=== PATIENT | female | born 1975 | race Caucasian/White ===

== ENCOUNTER 2017-06-24 09:06 | Emergency (ER) | payer OTHER ==
[2017-06-24 09:10] VITALS: TEMP 97.8; BMI 29.8
[2017-06-24] MEDS ORDERED: ACETAMINOPHEN 1000 MG/100 ML VIAL (NON FORMULARY) IVPB ONE (09:47)
[2017-06-24] MEDS ORDERED: SODIUM CHLORIDE 1,000 ML IV STA (09:47)
--- NOTE | 2017-06-24 09:48 | PDOC ---
History of Present Illness - General Chief Complaint: Pain, Acute Stated Complaint: ABD PAIN Time Seen by Provider: 06/24/17 09:19 History Source: Patient Exam Limitations: No Limitations - History of Present Illness Initial Comments: 06/24/17 09:52 Pt. is a 41 y/o F PMH fibroid surgery 2 monthso ago, who presents to the ED c/o of abdominal pain since Saturday evening. Pt. states that the pain began in her r lower quadrant/suprapubic area. She states that now her whole stomach hurts. She states that she feels bloated. Last bowel movement was Saturday evening and normal for her. Denies blood in the stool. Denies fevers, chills, n/v/d. She is currently on her menstrual cycle 06/24/17 13:37 Past History - Travel Traveled outside of the country in the last 30 days: No Close contact w/someone who was outside of country & ill: No - Past Medical History Allergies/Adverse Reactions: Allergies Allergy/AdvReac Type Severity Reaction Status Date / Time Penicillins Allergy Verified 06/24/17 09:08 Home Medications: Ambulatory Orders NK [No Known Home Medication] 06/24/17 COPD: No - Surgical History Abdominal Surgery: Yes (fibroids) - Reproductive History Is Patient Now?: No - Suicide/Smoking/Psychosocial Hx Smoking History: Never smoked Have you smoked in the past 12 months: No Information on smoking cessation initiated: No Hx Alcohol Use: No Drug/Substance Use Hx: No Substance Use Type: None Review of Systems - Review of Systems Able to Perform ROS?: Yes Is the patient limited Swedish proficient: No Constitutional: No: Chills, Fever, Malaise, Weakness ABD/GI: Yes: Abdominal Distended, Constipated, Abdominal cramping (RLQ, suprapubic area). No: Diarrhea, Nausea, Rectal Bleeding, Vomiting : Yes: Other (currently on menstural cycle). No: Burning, Dysuria, Discharge , Frequency, Hematuria Musculoskeletal: No: Back Pain, Joint Swelling Integumentary: No: Bruising, Pruritus, Rash All Other Systems: Reviewed and Negative *Physical Exam - Vital Signs Last Vital Signs Temp Pulse Resp BP Pulse Ox 97.8 F 75 18 142/87 100 06/24/17 09:08 06/24/17 09:08 06/24/17 09:08 06/24/17 09:08 06/24/17 09:08 - Physical Exam General Appearance: Yes: Nourished, Appropriately Dressed, Mild Distress ( laying on bed holding abdomen.) Neck: positive: Trachea midline, Supple. negative: Tender, Rigid, Lymphadenopathy (R), Lymphadenopathy (L) Respiratory/Chest: positive: Lungs Clear, Normal Breath Sounds. negative: Respiratory Distress, Accessory Muscle Use, Rhonchi, Stridor, Wheezing Cardiovascular: positive: Regular Rhythm, Regular Rate, S1, S2 (present). negative: Murmur Female Pelvic Exam: positive: normal external exam, CMT (suprapubic region), vaginal bleeding (on menstural cycle). negative: lesions, adnexal tenderness Gastrointestinal/Abdominal: positive: Normal Bowel Sounds, Tender (RLQ, Suprapubic area), Flat, Soft, Other ((+) obturator sign). negative: Guarding, Rebound Musculoskeletal: positive: Normal Inspection. 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 No appendicitis, states see some sigmoid thickening. Awaiting official report. Pelvic exam: internal, os open, bleeding currently. Blood in the vault. Pt. on her menstral cycle. (+) cervical motion tenderness over the suprapubic area. Pt. to go for pelvic US.
[2017-06-24] MEDS ORDERED: ACETAMINOPHEN INJECTION 100 ML IVPB ONE (09:50)
[2017-06-24 10:07] LABS: BASOPHIL 1.1 % (0-2.0); EOSINOPHIL 2.3 % (0-4.5); MCH 22.2 pg (25.7-33.7); MCHC 31.1 g/dl (32.0-36.0); MEAN CELL VOLUME 71.6 fl (80-96); MEAN PLT VOLUME 9.1 fl (7.5-11.1); NEUTROPHILS 64.6 % (42.8-82.8); PLATELET COUNT 223 K/MM3 (134-434); WHITE BLOOD COUNT 8.6 K/mm3 (4.0-10.0)
[2017-06-24 10:16] LABS: URINE APPEARANCE CLOUDY; URINE BILIRUBIN NEGATIVE (NEGATIVE); URINE BLOOD 3+ (NEGATIVE); URINE COLOR AMBER; URINE GLUCOSE (UA) NEGATIVE (NEGATIVE); URINE KETONE NEGATIVE (NEGATIVE); URINE LEUK ESTERASE NEGATIVE (NEGATIVE); URINE NITRITE NEGATIVE (NEGATIVE); URINE PROTEIN 1+ (NEGATIVE); URINE UROBILINOGEN NEGATIVE mg/dL (0.2-1.0)
[2017-06-24 10:35] LABS: ALBUMIN 3.2 g/dl (3.4-5.0); ANION GAP 5 (8-16); BILIRUBIN,TOTAL 0.7 mg/dL (0.2-1.0); CALCIUM 7.9 mg/dL (8.5-10.1); CO2 28 mmol/L (21-32); CREATININE 0.6 mg/dL (0.55-1.02); GLUCOSE,RANDOM 87 mg/dL (74-106); SGOT/AST 10 U/L (15-37); SGPT/ALT 18 U/L (12-78)
[2017-06-24 10:36] LABS: ALK PHOS 73 U/L (45-117)
[2017-06-24 11:09] LABS: GRANULAR CASTS 12 /lpf; URINE MUCUS MANY; URINE RBC 162 /hpf (0-3); URINE WBC 4 /hpf (3-5)
[2017-06-24 15:45] LABS: URINE LEUK ESTERASE NEGATIVE (NEGATIVE)
--- NOTE | 2017-06-24 16:17 | PDOC ---
*Physical Exam - Vital Signs Last Vital Signs Temp Pulse Resp BP Pulse Ox 97.8 F 75 18 142/87 100 06/24/17 09:08 06/24/17 09:08 06/24/17 09:08 06/24/17 09:08 06/24/17 09:08 ED Treatment Course - LABORATORY CBC & Chemistry Diagram: 06/24/17 10:01 06/24/17 10:01 - ADDITIONAL ORDERS Additional order review: Laboratory Results 06/24/17 06/24/17 10:01 09:55 Sodium 140 Potassium 4.3 Chloride 107 Carbon Dioxide 28 Anion Gap 5 L BUN 7 Creatinine 0.6 Creat Clearance w eGFR > 60 Random Glucose 87 Calcium 7.9 L Total Bilirubin 0.7 AST 10 L ALT 18 Alkaline Phosphatase 73 Total Protein 7.0 Albumin 3.2 L Urine Color Tory Urine Appearance Cloudy Urine pH 5.0 Ur Specific [place] 1.026 Urine Protein 1+ H Urine Glucose (UA) Negative Urine Ketones Negative Urine Blood 3+ H Urine Nitrite Negative Urine Bilirubin Negative Urine Urobilinogen Negative Ur Leukocyte Esterase Negative Urine WBC (Auto) 4 Urine RBC (Auto) 162 Ur Epithelial Cells Few Granular Casts 12 Urine Mucus Many Urine HCG, Qual Negative 06/24/17 10:01 RBC 4.86 MCV 71.6 L MCHC 31.1 L RDW 19.0 H MPV 9.1 Neutrophils % 64.6 Lymphocytes % 26.5 Monocytes % 5.5 Eosinophils % 2.3 Basophils % 1.1 - Medications Given in the ED: ED Medications Discontinued Medications Generic Name Dose Route Start Last Admin Trade Name Freq PRN Reason Stop Dose Admin Acetaminophen 1,000 mg 06/24/17 09:47 06/24/17 10:02 Ofirmev Injection - IVPB 06/24/17 09:48 1,000 mg ONCE ONE Administration Sodium Chloride 1,000 mls @ 1,000 mls/hr 06/24/17 09:47 06/24/17 10:01 Normal Saline - IV 06/24/17 10:46 1,000 mls/hr ASDIR STA Administration Medical Decision Making - Medical Decision Making 06/24/17 16:15 CT and US appreaciated. 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 Percocet for pain and Note to be off work until follow up on Saturday *DC/Admit/Observation/Transfer Diagnosis at time of Disposition: Pelvic pain Uterine fibroid Qualifiers: Uterine leiomyoma location: unspecified location Qualified Code(s): D25.9 - Leiomyoma of uterus, unspecified Ovarian cyst Qualifiers: Laterality: unspecified laterality Qualified Code(s): N83.209 - Unspecified ovarian cyst, unspecified side - Discharge Dispostion Disposition: HOME Admit: No - Prescriptions Prescriptions: Oxycodone HCl/Acetaminophen [Percocet 5-325 mg Tablet] 1 - 2 tab PO Q6H #20 tab MDD 8 - Referrals - Patient Instructions Printed Discharge Instructions: DI for Uterine Fibroids, DI for Pelvic Pain Additional Instructions: Debi- Sorry this hurts so badly. Return to us if worse. See your Public Services Librarian in the clinic on SATURDAY. Take your printed lab and imaging results with you. Percocet is for bad pain. Take motrin for pain otherwise. Pedro- Dr. Jay Soriano - Post Discharge Activity
[2017-06-24 16:45] VITALS: BP 136/75; PULSE 71
== END 2017-06-24 16:44 | disposition home or self-care (01) ==
LOC: JER 09:06
PROC: 3E033NZ Introduction of Analgesics, Hypnotics, Sedatives into Peripheral Vein, Percutaneous Approach (ICD-10-PCS; principal; 2017-06-24)
PROC: 3E0337Z Introduction of Electrolytic and Water Balance Substance into Peripheral Vein, Percutaneous Approach (ICD-10-PCS; 2017-06-24)
DX: N83.209 Unspecified ovarian cyst, unspecified side (principal); D25.9 Leiomyoma of uterus, unspecified; R10.2 Pelvic and perineal pain
CPT/HCPCS: 36415; 74177-TC; 76830-TC; 80053; 81003; 81015; 84703; 85025; 87086; 96361; 96374; 99283-25; Q9967

== ENCOUNTER 2017-07-09 17:01 | Emergency (ER) | payer OTHER ==
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
[2017-07-09 17:18] VITALS: BP 160/86; PULSE 65; TEMP 98.3; BMI 29.8
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
== END 2017-07-09 18:21 | disposition left against medical advice (07) ==
LOC: JERFT 17:01
DX: Z01.30 Encounter for examination of blood pressure without abnormal findings (principal); V43.52XA Car driver injured in collision with other type car in traffic accident, initial encounter; Y92.488 Other paved roadways as the place of occurrence of the external cause; Y93.89 Activity, other specified; Y99.8 Other external cause status
CPT/HCPCS: 99281-25

== ENCOUNTER 2020-11-14 17:22 | Emergency (ER) | payer OTHER ==
[2020-11-14 17:44] VITALS: BMI 25.4
[2020-11-14] MEDS ORDERED: LACTATED RINGERS SOLUTION 1000 ML INFUS.BAG IV STA (20:32)
[2020-11-14] MEDS ORDERED: ACETAMINOPHEN 1000 MG/100 ML VIAL (NON FORMULARY) IVPB ONE (20:32)
[2020-11-14] MEDS ORDERED: VANCOMYCIN 1,000 MG in DEXTROSE 5%-WATER - 250 ML IVPB ONE (20:33)
[2020-11-14] MEDS ORDERED: MEROPENEM 1 GM in DEXTROSE 5%-WATER 100 ML IVPB ONE (20:35)
[2020-11-14] MEDS ORDERED: morphine CARPU-JECT 4 MG/1 ML DISP.SYRIN IVPUSH ONE (20:40)
[2020-11-14] MEDS ORDERED: morphine SULFATE 4 MG/ML VIAL ONE (21:55)
[2020-11-14] MEDS ORDERED: ACETAMINOPHEN INJECTION 100 ML IVPB ONE (21:56)
[2020-11-14] MEDS ORDERED: MEROPENEM 1 GM VIAL (RESTRICTED TO ID) IVPB ONE (21:56)
[2020-11-14 22:32] LABS: BASO % 0.5 % (0-2.0); HEMATOCRIT 32.5 % (32.4-45.2); HEMOGLOBIN 10.5 GM/dL (10.7-15.3); LYMPH % 24.5 % (8-40); MCH 27.3 pg (25.7-33.7); MCHC 32.5 g/dl (32.0-36.0); MEAN PLT VOLUME 8.8 fl (7.5-11.1); PLATELET COUNT 235 K/MM3 (134-434); RBC 3.86 M/mm3 (3.60-5.2); RDW 20.2 % (11.6-15.6); WHITE BLOOD COUNT 7.1 K/mm3 (4.0-10.0)
[2020-11-14 22:37] LABS: INR 1.22 (0.83-1.09); PROTHROMBIN TIME (PATIENT) 14.7 SEC (9.7-13.0)
[2020-11-14 22:40] LABS: ACTIVATED PTT 28.6 SECONDS (25.2-36.5)
[2020-11-14 22:43] LABS: ALBUMIN 2.4 g/dl (3.4-5.0); BLOOD UREA NITROGEN 5.7 mg/dL (7-18); CALCIUM 8.1 mg/dL (8.5-10.1); MAGNESIUM 1.7 mg/dL (1.8-2.4)
[2020-11-14 22:44] LABS: URINE APPEARANCE CLEAR; URINE BILIRUBIN NEGATIVE (NEGATIVE); URINE COLOR YELLOW; URINE GLUCOSE (UA) NEGATIVE (NEGATIVE); URINE KETONE NEGATIVE (NEGATIVE); URINE LEUK ESTERASE NEGATIVE (NEGATIVE); URINE NITRITE NEGATIVE (NEGATIVE); URINE PROTEIN NEGATIVE (NEGATIVE); URINE UROBILINOGEN 0.2 mg/dL (0.2-1.0)
[2020-11-14 22:47] LABS: CREATININE 0.4 mg/dL (0.55-1.3)
[2020-11-14 22:48] LABS: BILIRUBIN,TOTAL 0.3 mg/dL (0.2-1); TOT PROT 6.1 g/dl (6.4-8.2)
[2020-11-15] MEDS ORDERED: VANCOMYCIN 1 GRAM (PRE-DOCKED) 1,000 MG/250 ML BAG IVPB ONE (00:13)
[2020-11-15] MEDS ORDERED: MAGNESIUM 1GM/D5W - 1 GM/100 ML IVPB IVPB ONE (00:14)
[2020-11-15 02:13] VITALS: BP 116/63; PULSE 78; TEMP 97.9
== END 2020-11-15 03:13 | disposition short-term general hospital (02) ==
LOC: JER 17:22
PROC: 3E0333Z Introduction of Anti-inflammatory into Peripheral Vein, Percutaneous Approach (ICD-10-PCS; principal; 2020-11-14)
PROC: 3E033GC Introduction of Other Therapeutic Substance into Peripheral Vein, Percutaneous Approach (ICD-10-PCS; 2020-11-14)
PROC: 3E03329 Introduction of Other Anti-infective into Peripheral Vein, Percutaneous Approach (ICD-10-PCS; 2020-11-14)
PROC: 3E033NZ Introduction of Analgesics, Hypnotics, Sedatives into Peripheral Vein, Percutaneous Approach (ICD-10-PCS; 2020-11-14)
PROC: 3E03329 Introduction of Other Anti-infective into Peripheral Vein, Percutaneous Approach (ICD-10-PCS; 2020-11-14)
DX: N61.1 Abscess of the breast and nipple (principal); T81.49XA Infection following a procedure, other surgical site, initial encounter; R50.9 Fever, unspecified
CPT/HCPCS: 36415; 71260-TC; 74177-TC; 80053; 81003; 83605; 83735; 84703; 85025; 85610; 85730; 86850; 86900; 86901; 87040; 87086; 93005; 93010; 99285-25; C9803; J0131; U0003; U0005